=== PATIENT | male | born 1985 | race African-American/Black ===

== ENCOUNTER 2017-05-24 19:44 | Emergency (ER) | payer OTHER, MEDICAID ==
[~2017-05-24] VITALS: Ht 160 cm; Wt 70.0 kg
[2017-05-24 19:50] VITALS: BP 116/60
== END 2017-05-24 22:58 | disposition home or self-care (01) ==
LOC: ER 20:42
DX: S62.662 Nondisplaced fracture of distal phalanx of right middle finger (principal); X58.XXXD Exposure to other specified factors, subsequent encounter; F17.210 Nicotine dependence, cigarettes, uncomplicated; Z71.6 Tobacco abuse counseling; F12.90 Cannabis use, unspecified, uncomplicated; R20.0 Anesthesia of skin
CPT/HCPCS: 29130; 73140; 99284

== ENCOUNTER 2020-03-06 04:18 | Emergency (ER) | payer MEDICAID, OTHER ==
[~2020-03-06] VITALS: Ht 167.6 cm; Wt 63.0 kg
[2020-03-06] MEDS ORDERED: ACETAMINOPHEN 325MG TABLET PO ONE (05:00)
[2020-03-06] MEDS ORDERED: KETOROLAC 30MG/ML VIAL IM ONE (06:00)
[2020-03-06] MEDS ORDERED: ONDANSETRON HCL 4MG/2ML INJ IV ONE (06:30)
[2020-03-06] MEDS ORDERED: ETOMIDATE 2MG/ML 10ML VIAL IV ONE (06:30)
[2020-03-06] MEDS ORDERED: PROPOFOL 200MG/20ML VIAL IV ONE (06:30)
[2020-03-06] MEDS ORDERED: SODIUM CHLORIDE 0.9% 1,000 ML IV ONE (06:33)
[2020-03-06 09:20] VITALS: BP 131/87
== END 2020-03-06 09:34 | disposition home or self-care (01) ==
LOC: ER 04:18
DX: S43.025A Posterior dislocation of left humerus, initial encounter (principal); F12.10 Cannabis abuse, uncomplicated; Z91.040 Latex allergy status; W01.0XXA Fall on same level from slipping, tripping and stumbling without subsequent striking against object, initial encounter; Y93.89 Activity, other specified; Y92.89 Other specified places as the place of occurrence of the external cause; Y99.8 Other external cause status
CPT/HCPCS: 23650; 73030; 96372; 96374; 99152; 99285; J1885; J2405; J2704; J3490; J7030; L3670

== ENCOUNTER 2021-10-04 07:04 | Emergency (ER) | payer MEDICAID ==
[~2021-10-04] VITALS: Ht 172.7 cm; Wt 70.0 kg
[2021-10-04] MEDS ORDERED: MORPHINE SULFATE 4 MG/ML CPJ (NOT FOR IM USE) IV STA (07:11)
[2021-10-04] MEDS ORDERED: ONDANSETRON HCL 4MG/2ML INJ IV STA (07:11)
[2021-10-04] MEDS ORDERED: SODIUM CHLORIDE 0.9% 1,000 ML IV ONE (07:15)
[2021-10-04] MEDS ORDERED: ETOMIDATE 2MG/ML 10ML VIAL IV ONE (08:15)
[2021-10-04] MEDS ORDERED: FENTANYL CITRATE/PF 50MCG/ML 2ML VIAL IV ONE (09:00)
[2021-10-04] MEDS ORDERED: MIDAZOLAM HCL 2 MG/2 ML VIAL IV ONE (09:00)
[2021-10-04] MEDS ORDERED: IBUP-2029 MT (11:06)
[2021-10-04] MEDS ORDERED: TRAM50TA MT (11:06)
[2021-10-04 12:06] VITALS: BP 113/69
== END 2021-10-04 12:25 | disposition home or self-care (01) ==
LOC: ER 07:04
DX: S43.005A Unspecified dislocation of left shoulder joint, initial encounter (principal); X58.XXXA Exposure to other specified factors, initial encounter; Y93.89 Activity, other specified; Y92.89 Other specified places as the place of occurrence of the external cause; Y99.8 Other external cause status
CPT/HCPCS: 23650; 73020; 73030; 96361; 96374; 96375; 99152; 99285; J2250; J2270; J2405; J3010; J3490; J7030; L1830

== ENCOUNTER 2022-01-31 13:07 | Emergency (ER) | payer MEDICAID ==
[~2022-01-31] VITALS: Ht 170.2 cm; Wt 75.0 kg
[~2022-01-31 13:07] MED LIST: IBUP-2029 MT; TRAM50TA MT
[2022-01-31] MEDS ORDERED: IBUPROFEN 600MG TABLET PO ONE (13:30)
[2022-01-31] MEDS ORDERED: CEPH500C2 MT (13:33)
[2022-01-31] MEDS ORDERED: IBUP-2029 MT (13:33)
[2022-01-31 13:56] VITALS: BP 126/89
== END 2022-01-31 14:00 | disposition home or self-care (01) ==
LOC: ER 13:07
DX: T78.49XA Other allergy, initial encounter (principal); X58.XXXA Exposure to other specified factors, initial encounter; Z79.899 Other long term (current) drug therapy
CPT/HCPCS: 99283

== ENCOUNTER 2023-03-24 11:29 | Emergency (ER) | payer MEDICAID ==
[~2023-03-24] VITALS: Ht 170.2 cm; Wt 76.0 kg
[~2023-03-24 11:29] MED LIST changes: +CEPH500C2 MT
[2023-03-24 12:12] VITALS: BP 137/89
[2023-03-24] MEDS ORDERED: KETOROLAC 60MG/2ML VIAL IM STA (13:26)
[2023-03-24] MEDS ORDERED: NAPR-681 PO (15:11)
[2023-03-24] MEDS ORDERED: KETOROLAC 60MG/2ML VIAL IM NR (15:30)
== END 2023-03-24 15:39 | disposition home or self-care (01) ==
LOC: ER 11:29
DX: M19.90 Unspecified osteoarthritis, unspecified site (principal)
CPT/HCPCS: 72100; 96372; 99283; J1885

== ENCOUNTER 2023-08-01 02:17 | Emergency (ER) | payer MEDICAID ==
[~2023-08-01] VITALS: Ht 180.3 cm; Wt 79.0 kg
[~2023-08-01 02:17] MED LIST changes: +NAPR-681 PO
[2023-08-01 02:25] VITALS: TEMP 97.7
[2023-08-01] MEDS ORDERED: KETOROLAC 60MG/2ML VIAL IM ONE (05:30)
[2023-08-01] MEDS ORDERED: PROPOFOL 200MG/20ML VIAL IV ONE (07:15)
[2023-08-01] MEDS ORDERED: KETAMINE HCL 50 MG/ML 10ML IV ONE (07:15)
[2023-08-01 09:03] VITALS: O2SAT 96
[2023-08-01] MEDS ORDERED: IBUP-2029 MT (09:35)
[2023-08-01 10:00] VITALS: BP 123/71; PULSE 88; RESP 19
== END 2023-08-01 10:15 | disposition home or self-care (01) ==
LOC: ER 02:17
DX: S43.005A Unspecified dislocation of left shoulder joint, initial encounter (principal); X58.XXXA Exposure to other specified factors, initial encounter; Y93.89 Activity, other specified; Y92.89 Other specified places as the place of occurrence of the external cause; Y99.8 Other external cause status
CPT/HCPCS: 73030; 23650; 96372; 96374; 99152; 99285; J3490; J1885; J2704; Z7610; A4565

== ENCOUNTER 2023-12-09 17:35 | Emergency (ER) | payer MEDICAID ==
[~2023-12-09] VITALS: Ht 172.7 cm; Wt 75.0 kg
[2023-12-09] MEDS: KETOROLAC 30MG/ML VIAL IV ONE (18:54)
[2023-12-09] MEDS: MIDAZOLAM HCL 2 MG/2 ML VIAL IV ONE (19:18)
[2023-12-09] MEDS: PROPOFOL 200MG/20ML VIAL IV PRN (20:22)
[2023-12-09] MEDS: ONDANSETRON HCL 4MG/2ML INJ IV NR (20:32)
[2023-12-09 22:40] VITALS: BP 121/77; PULSE 99; RESP 18; TEMP 98.3; O2SAT 98
== END 2023-12-09 22:48 | disposition home or self-care (01) ==
LOC: ER 17:35
DX: S43.005A Unspecified dislocation of left shoulder joint, initial encounter (principal); Z79.899 Other long term (current) drug therapy; X58.XXXA Exposure to other specified factors, initial encounter; Y93.89 Activity, other specified; Y92.89 Other specified places as the place of occurrence of the external cause; Y99.8 Other external cause status
CPT/HCPCS: 73030; 23650; 99152; 99285; J1885; J2250; J2405; J2704; Z7610 ×3; A4565